=== PATIENT | female | born 1955 | race Caucasian/White ===

== ENCOUNTER → 2016-07-14 | Day surgery (SDC) | payer OTHER ==
[~2016-07-14] MED LIST: Lactated Ringers 1,000 ML IV SCH; Propofol 200 MG/20 ML SDV IV ONE
[2016-07-14 11:53] VITALS: BP 125/80
--- NOTE | 2016-07-17 07:17 | OR ---
DATE OF OPERATION: 07/14/2016 PREOPERATIVE DIAGNOSIS: SCREENING COLONOSCOPY. POSTOPERATIVE DIAGNOSIS: SCREENING COLONOSCOPY. SURGEON: Agustín Jenkins MD PROCEDURE: FULL-LENGTH COLONOSCOPY. ANESTHESIA: FLAG FOOTBALL COACH. COMPLICATIONS: None. SPECIMEN: None. FINDINGS: Normal full-length colonoscopy. RECOMMENDATIONS: Routine colonoscopy every 10 years. INDICATIONS: Mrs. Coronado was seen by her primary provider and was recommended she have a screening exam. DESCRIPTION OF PROCEDURE: The patient was prepped and draped, placed in the left lateral decubitus position. A lubricated Olympus colonoscope was inserted and easily advanced to the cecum. We were able to directly visualize the ileocecal valve and appendiceal orifice. The bowel prep was excellent. Upon withdrawal of the scope throughout the entire colon, I found no signs of any polyps, mass, ulceration, or bleeding sites. There were no vascular abnormalities or signs of colitis. No diverticula were seen. The rectal vault was unremarkable. Retroflexion in the rectum showed no perianal lesions. Air was then suctioned, scope removed without complication. ANDIE/JUSTIN /[id number]
== END ==
LOC: CC.SDS 09:50
PROVIDERS: ATTEND Family Medicine
DX: Z12.11 Encounter for screening for malignant neoplasm of colon (principal); I10 Essential (primary) hypertension; E78.00 Pure hypercholesterolemia, unspecified; E55.9 Vitamin D deficiency, unspecified; Z79.82 Long term (current) use of aspirin; Z79.899 Other long term (current) drug therapy; Z72.0 Tobacco use
CPT/HCPCS: 45378; J2704; J7120